=== PATIENT | female | born 1940 | race Caucasian/White ===

== ENCOUNTER 2017-12-21 14:38 | Inpatient (IN) ==
[2017-12-22] MEDS ORDERED: Bismuth Subsalicylate 120 ML ORAL SUSPENSION PO PRN (01:10)
[2017-12-22] MEDS ORDERED: traMADol 50 MG TABLET PO PRN (01:11)
[2017-12-22] MEDS: Melatonin 3 MG TABLET PO PRN ×3 (01:37→22:07)
[2017-12-22 05:58] LABS: Basophils % 0.5 %; Eosinophils # 0.2 K/mcL (0.0-0.6); Eosinophils % 2.2 %; Hematocrit 22.8 % (35.3-44.9); Hemoglobin 7.5 g/dL (11.5-15.4); INR 1.1; Immature Granulocytes % 5.8 % (0-4); Lymphocytes % 11.6 %; Mean Corpuscular HGB Conc 32.9 g/dL (31.6-35.5); Mean Corpuscular Hemoglobin 29.4 pg (28.0-33.3); Mean Corpuscular Volume 89.4 fL (83.0-100.0); Mean Platelet Volume 9.2 fL (9.4-12.4); Monocytes # 1.2 K/mcL (0.0-1.3); Monocytes % 14.5 %; Neutrophils # 5.3 K/mcL (1.6-8.9); Nucleated Red Blood Cells 0.9 /100 WBC (0); Platelet Count 279 K/mcL (140-400); Prothrombin Time 12.5 Seconds (9.4-12.1); Red Blood Count 2.55 M/mcL (3.82-4.97); Red Cell Distribution Width 15.7 % (11.5-14.5); Segmented Neutrophils % 65.4 %
[2017-12-22 06:01] LABS: Activated Partial Thrombo Time 34.8 Seconds (26.0-36.0)
[2017-12-22 06:10] LABS: Anisocytosis 1+ (Not Present); BUN/Creatinine Ratio 22 (6-26); Blood Urea Nitrogen 14 mg/dL (8-23); Calcium 8.3 mg/dL (8.6-10.3); Carbon Dioxide 26 mEq/L (23-29); Chloride 102 mEq/L (98-107); Glucose 131 mg/dL (70-105); Osmolality,Calculated 280 (280-300); Potassium 3.8 mEq/L (3.5-5.1); Sodium 134 mEq/L (136-145); eGFR For African Americans > 60 (> 60); eGFR For Non-African Americans > 60 (> 60)
[2017-12-22] MEDS: Sennosides/Docusate Sodium TABLET PO SCH ×2 (07:49→20:25)
[2017-12-22] MEDS: amLODIPine 5 MG TABLET PO SCH (07:49)
[2017-12-22] MEDS ORDERED: Aspirin 325 MG TABLET PO SCH (09:00)
--- NOTE | 2017-12-22 11:57 | Internal Med History&Physical ---
Date of Encounter: 12/22/17 Time of Encounter: 11:53 Assessment and Plan (1) Status post closed fracture of right femur Current visit: Yes Status: Acute PT\OT to eval and treat. Will follow progress. Pain controlled with Tylenol. Tramadol ordered if needed. Heparin for DVT prophylaxis (2) Essential hypertension Current visit: Yes Status: Acute Controlled with Norvasc. Monitor blood pressure. Internal Medicine - H&P: HPI Admitted From: Hospital to Hospital Transfer Plans for Post Hospital Care: Home History of present illness: Ms. Cherry is a 77 year old female admitted to inpatient rehab from [facility] s/p Right femur fracture with ORIF on 12/16/17 after tripping and falling over a box at work. Past medical history includes hypertension, Gerd, cervical neoplasm, diabetes. Prior to admission patient living at home with and working. States pain is controlled with Tylenol. States cannot take aspirin. States discussed changing aspirin to heparin. Last bowel movement yesterday. Maintaining appetite and hydration. Denies fever, chills, nausea, vomiting or diarrhea. Denies shortness of breath or chest pain. Scheduled to follow up with ortho on . NWB on RLE. Past Med Surg Social Fam HX - Past Medical History Medical history: GERD, hyperlipidemia, hypertension, other Additional medical history: Gallbladder Polyps - Past Surgical History Additional surgical history: Hiatal Surgery - Social History Smoking Status: Never smoker Smokeless Tobacco Status: No Alcohol use: none Drug use: none - Family History Sister Living Status: Hx Family Cancer: Yes Father Living Status: Hx Family Cardiac Disorders: Yes Internal Medicine - H&P: Meds 3 Allergy/AdvReac Type Severity Reaction Status Date / Time iodine AdvReac Rash Verified 12/21/17 23:32 All Systems PM: A 10-system review of systems was performed and is negative for pertinent findings except as documented above in the HPI. - Constitutional Constitutional: no chills, no fever(s), no night sweats - EENT Eyes: no change in vision, no discharge, no pain, no photophobia Ears: no ear discharge, no ear pain, no tinnitus Nose, mouth and throat: no dysphagia, no nasal discharge, no neck pain, no sore throat - Cardiovascular Cardiovascular ROS IM: no chest pain, no diaphoresis, no dyspnea, no lightheadedness, no palpitations, no syncope - Respiratory Respiratory: no cough, no dyspnea, no wheezing, no excessive phlegm production - Gastrointestinal Gastrointestinal: no abdominal pain, no diarrhea, no hematemesis, no hematochezia, no melena, no nausea, no vomiting - Genitourinary Genitourinary: no change in urinary stream, no dysuria, no flank pain, no hematuria - Musculoskeletal Musculoskeletal ROS IM: no numbness, no tingling - Integumentary Integumentary IM: no rash, no unusual bruising - Neurological Neurological ROS: no confusion, no convulsions, no focal weakness, no numbness, no tingling, no tremor(s) - Hematologic/Lymphatic Hematologic/Lymphatic: no easy bruising - Constitutional Vitals: Temp Pulse Resp BP Pulse Ox 98.9 F 92 16 128/77 90 12/22/17 07:18 12/22/17 07:18 12/22/17 07:18 12/22/17 07:18 12/22/17 07:18 General appearance: Present: cooperative, A&O X 3, no acute distress, answers questions appropriately - Head Head exam: Present: atraumatic, normocephalic - Eye Eye exam: Present: PERRL, conjuntiva pink, sclera anicteric Pupils: Present: PERRL - Neck Neck exam general surgery: Present: supple, trachea midline. Absent: lymphadenopathy - Respiratory Respiratory exam: Present: CTAB. Absent: accessory muscle use, rales, rhonchi, wheezes - Cardiovascular Cardiovascular exam: Present: RRR, +S1, +S2. Absent: diastolic murmur, gallop, rubs, systolic murmur - GI/Abdominal GI/Abdominal exam: Present: normal bowel sounds, soft, no peritoneal signs. Absent: distended, tenderness - Extremities Exam Extremities exam: Present: warm, radial pulses palpable and symmetrical. Absent : calf tenderness, cyanotic, pedal edema - Incison Comments: right femur, drsg intact. - Neurological Exam Neurological exam: Present: CN II-XII intact, oriented X3, no focal deficits. Absent: pronater drift, facial droop, speech deficit - Skin Skin exam: Present: dry, intact Internal Med - H&P Results - Labs CBC & Chem 7: 12/22/17 05:35 12/22/17 05:35 Labs: Short CBC 12/22/17 Range/Units 05:35 WBC 8.2 (4.3-11.1) K/mcL Hgb 7.5 L (11.5-15.4) g/dL Hct 22.8 L (35.3-44.9) % Plt Count 279 (140-400) K/mcL Neutrophils # 5.3 (1.6-8.9) K/mcL BMP 12/22/17 05:35 Sodium 134 L Potassium 3.8 Chloride 102 Carbon Dioxide 26 BUN 14 Creatinine 0.65 Glucose 131 H Calcium 8.3 L
[2017-12-22] MEDS: *HR* Heparin 5,000 UNIT/ML VIAL SQ SCH (17:43)
[2017-12-23] MEDS: *HR* Heparin 5,000 UNIT/ML VIAL SQ SCH ×2 (06:06→16:25)
[2017-12-23] MEDS: Sennosides/Docusate Sodium TABLET PO SCH ×2 (08:07→20:35)
[2017-12-23] MEDS: amLODIPine 5 MG TABLET PO SCH (08:07)
--- NOTE | 2017-12-23 11:54 | Internal Med Progress Note ---
Date of Encounter: 12/23/17 Time of Encounter: 11:52 - Assessment and plan (1) Status post closed fracture of right femur Current Visit: Yes Status: Acute Assessment and plan: Continue PT\OT. Will follow progress. Continue Tylenol for pain. Will monitor for effectiveness. Follow up with ortho as scheduled. (2) Essential hypertension Current Visit: Yes Status: Acute Assessment and plan: Controlled with current medication. Monitor blood pressure. (3) Anemia due to acute blood loss Current Visit: Yes Status: Acute Assessment and plan: Hemoglobin 7.5. Will repeat tomorrow. Asymptomatic - Time Spent With Patient less than 15 minutes - Subjective Interval history: Participating well with therapy. [place] self in hallway in wheelchair. Denies pain. Denies fever, chills, nausea, vomiting or diarrhea. Denies shortness of breath or chest pain. Maintaining appetite and hydration. - Constitutional Vitals: Temp Pulse Resp BP Pulse Ox 98.1 F 86 16 131/83 93 12/23/17 07:36 12/23/17 07:36 12/23/17 07:36 12/23/17 07:36 12/23/17 07:36 General appearance: Present: cooperative, A&O X 3, no acute distress, answers questions appropriately - Head Head exam: Present: atraumatic, normocephalic - Eye Eye exam: Present: PERRL, conjuntiva pink, sclera anicteric Pupils: Present: PERRL - Neck Neck exam general surgery: Present: supple, trachea midline. Absent: lymphadenopathy - Respiratory Respiratory exam: Present: CTAB. Absent: accessory muscle use, rales, rhonchi, wheezes - Cardiovascular Cardiovascular exam: Present: RRR, +S1, +S2. Absent: diastolic murmur, gallop, rubs, systolic murmur - GI/Abdominal GI/Abdominal exam: Present: normal bowel sounds, soft, no peritoneal signs. Absent: distended, tenderness - Extremities Exam Extremities exam: Present: warm, radial pulses palpable and symmetrical. Absent : calf tenderness, cyanotic, pedal edema - Incison Comments: right surgical incision drsg jennifer and intact. - Neurological Exam Neurological exam: Present: CN II-XII intact, oriented X3, no focal deficits. Absent: pronater drift, facial droop, speech deficit - Skin Skin exam: Present: dry, intact Internal Medicine: Result - Labs CBC & Chem 7: 12/22/17 05:35 12/22/17 05:35 - ABG Interpretation ABG results: PT/INR, D-dimer PT 12.5 Seconds (9.4-12.1) H 12/22/17 05:35 Consult Discharge Plan - Plan Referrals: Lopez Dutton [Primary Care Provider] -
[2017-12-23] MEDS: Melatonin 3 MG TABLET PO PRN (20:35)
[2017-12-24] MEDS: *HR* Heparin 5,000 UNIT/ML VIAL SQ SCH ×2 (05:39→18:18)
[2017-12-24] MEDS: Sennosides/Docusate Sodium TABLET PO SCH ×2 (08:03→21:37)
[2017-12-24] MEDS: amLODIPine 5 MG TABLET PO SCH (08:03)
--- NOTE | 2017-12-24 11:58 | Internal Med Progress Note ---
Date of Encounter: 12/24/17 Time of Encounter: 11:55 - Assessment and plan (1) Status post closed fracture of right femur Current Visit: Yes Status: Acute Assessment and plan: Patient is without complaints. States that pain to right leg has been minimal in that current pain medications have been effective. Right thigh and hip surgical incisions remain healthy and intact. Moderate amount of ecchymosis noted. Patient with moderate edema to right leg. No erythema. Patient is progressing well with physical therapy. We will continue with current plan of care (2) Essential hypertension Current Visit: Yes Status: Chronic Assessment and plan: No acute issues. Vital signs are stable. We will continue with current medications. (3) Anemia due to acute blood loss Current Visit: Yes Status: Acute Assessment and plan: Patient's most recent hemoglobin was 7.5. We will recheck hemoglobin in the morning. No signs of active bleeding. Vital signs are stable. - Subjective Interval history: He appears relaxed and currently denies any discomforts or shortness of breath. Patient states that physical therapy has been progressing well. - Constitutional Vitals: Temp Pulse Resp BP Pulse Ox 98.3 F 86 18 117/74 94 12/24/17 06:42 12/24/17 06:42 12/24/17 06:42 12/24/17 06:42 12/24/17 06:42 General appearance: Present: cooperative, A&O X 3, no acute distress, answers questions appropriately - Head Head exam: Present: atraumatic, normocephalic - Eye Eye exam: Present: PERRL, conjuntiva pink, sclera anicteric Pupils: Present: PERRL - Neck Neck exam general surgery: Present: supple, trachea midline. Absent: lymphadenopathy - Respiratory Respiratory exam: Present: CTAB. Absent: accessory muscle use, rales, rhonchi, wheezes - Cardiovascular Cardiovascular exam: Present: RRR, +S1, +S2. Absent: diastolic murmur, gallop, rubs, systolic murmur - GI/Abdominal GI/Abdominal exam: Present: normal bowel sounds, soft, no peritoneal signs. Absent: distended, tenderness - Extremities Exam Extremities exam: Present: warm, radial pulses palpable and symmetrical. Absent : calf tenderness, cyanotic, pedal edema Additional comments: Leg with split immobilizer in place. Moderate amount of ecchymosis noted to distal thigh. Surgical incision remained healthy and intact. No erythema - Neurological Exam Neurological exam: Present: CN II-XII intact, oriented X3, no focal deficits. Absent: pronater drift, facial droop, speech deficit - Skin Skin exam: Present: dry, intact Internal Medicine: Result - Labs CBC & Chem 7: 12/22/17 05:35 12/22/17 05:35 - ABG Interpretation ABG results: PT/INR, D-dimer PT 12.5 Seconds (9.4-12.1) H 12/22/17 05:35 Consult Discharge Plan - Plan Referrals: Lopez Dutton [Primary Care Provider] -
[2017-12-24 16:40] LABS: Bilirubin,Urine Small (Negative); Blood,Urine Negative (Negative); Clarity,Urine Clear (Clear); Color,Urine Yellow (Yellow); Glucose,Urine (UA) Normal (Normal); Ketones,Urine 15 mg/dL (Negative); Leukocyte Esterase,Urine Negative (Negative); Nitrite,Urine Negative (Negative); PH,Urine 5.5 pH Units (5.0-8.0); Protein,Urine Trace mg/dL (Neg-Trace); Specific Gravity,Urine 1.025 (1.010-1.025); Urobilinogen,Urine Normal (Normal)
[2017-12-24] MEDS: Melatonin 3 MG TABLET PO PRN (20:53)
[2017-12-25 05:47] LABS: Hematocrit 23.1 % (35.3-44.9); Hemoglobin 7.6 g/dL (11.5-15.4); Mean Corpuscular HGB Conc 32.9 g/dL (31.6-35.5); Mean Corpuscular Hemoglobin 30.6 pg (28.0-33.3); Mean Corpuscular Volume 93.1 fL (83.0-100.0); Mean Platelet Volume 9.2 fL (9.4-12.4); Platelet Count 346 K/mcL (140-400); Red Blood Count 2.48 M/mcL (3.82-4.97); Red Cell Distribution Width 18.7 % (11.5-14.5)
[2017-12-25 06:03] LABS: Alanine Aminotransferase 26 Units/L (7-52); Albumin 2.6 g/dL (3.5-5.7); Albumin/Globulin Ratio 1.2 (1.1-2.2); Alkaline Phosphatase 89 Units/L (34-104); Aspartate Amino Transferase 22 Units/L (13-39); BUN/Creatinine Ratio 32 (6-26); Bilirubin,Total 0.9 mg/dL (0.3-1.0); Blood Urea Nitrogen 23 mg/dL (8-23); Calcium 8.2 mg/dL (8.6-10.3); Carbon Dioxide 25 mEq/L (23-29); Chloride 103 mEq/L (98-107); Globulin 2.2 g/dL (2.4-3.5); Glucose 112 mg/dL (70-105); Magnesium 2.1 mg/dL (1.6-2.6); Osmolality,Calculated 284 (280-300); Potassium 3.5 mEq/L (3.5-5.1); Sodium 135 mEq/L (136-145); Total Protein 4.8 g/dL (6.4-8.9); eGFR For African Americans > 60 (> 60); eGFR For Non-African Americans > 60 (> 60)
[2017-12-25] MEDS: *HR* Heparin 5,000 UNIT/ML VIAL SQ SCH ×2 (06:13→18:29)
[2017-12-25] MEDS: Sennosides/Docusate Sodium TABLET PO SCH ×2 (08:05→20:09)
[2017-12-25] MEDS: amLODIPine 5 MG TABLET PO SCH (08:05)
[2017-12-25] MEDS: Acetaminophen 325 MG TABLET PO PRN ×2 (09:34→23:56)
--- NOTE | 2017-12-25 17:05 | Internal Med Progress Note ---
Date of Encounter: 12/25/17 Time of Encounter: 16:30 - Assessment and plan (1) Status post closed fracture of right femur Current Visit: Yes Status: Acute Assessment and plan: Pain controlled Continue PT/OT Nonbeta waiting for 8 weeks; has an orthopedic physician follow-up she will discuss long-term management with him/her (2) Essential hypertension Current Visit: Yes Status: Chronic Assessment and plan: Controlled (3) Anemia due to acute blood loss Current Visit: Yes Status: Acute Assessment and plan: Most likely anemia of acute blood loss Patient reports 1 unit RBC Patient also reports 1-2 units of iron infusion Hemoglobin has been stable; we will send Iron studies/B12 and thyroid - Time Spent With Patient 25 - 35 minutes - Constitutional Vitals: Temp Pulse Resp BP Pulse Ox 98.4 F 91 18 146/64 97 12/25/17 07:00 12/25/17 07:00 12/25/17 07:00 12/25/17 07:00 12/25/17 07:00 General appearance: Present: cooperative, A&O X 3, no acute distress, answers questions appropriately Internal Medicine: Result - Labs CBC & Chem 7: 12/25/17 05:10 12/25/17 05:10 Labs: Short CBC 12/25/17 Range/Units 05:10 WBC 11.3 H (4.3-11.1) K/mcL Hgb 7.6 L (11.5-15.4) g/dL Hct 23.1 L (35.3-44.9) % Plt Count 346 (140-400) K/mcL BMP 12/25/17 05:10 Sodium 135 L Potassium 3.5 Chloride 103 Carbon Dioxide 25 BUN 23 Creatinine 0.72 Glucose 112 H Calcium 8.2 L Liver Function 12/25/17 Range/Units 05:10 Total Bilirubin 0.9 (0.3-1.0) mg/dL AST 22 (13-39) Units/L ALT 26 (7-52) Units/L Alkaline Phosphatase 89 (34-104) Units/L Albumin 2.6 L (3.5-5.7) g/dL Urine 12/24/17 Range/Units 16:00 Urine Color Yellow (Yellow) Urine Clarity Clear (Clear) Urine pH 5.5 (5.0-8.0) pH Units Ur Specific [place] 1.025 (1.010-1.025) Urine Protein Trace (Neg-Trace) mg/dL Urine Glucose (UA) Normal (Normal) mg/dL - ABG Interpretation ABG results: PT/INR, D-dimer PT 12.5 Seconds (9.4-12.1) H 12/22/17 05:35 Consult Discharge Plan - Plan Referrals: Lopez Dutton [Primary Care Provider] -
[2017-12-25] MEDS: Melatonin 3 MG TABLET PO PRN (21:21)
[2017-12-26 05:16] LABS: Hematocrit 23.7 % (35.3-44.9); Hemoglobin 7.9 g/dL (11.5-15.4); Mean Corpuscular HGB Conc 33.3 g/dL (31.6-35.5); Mean Corpuscular Hemoglobin 31.2 pg (28.0-33.3); Mean Corpuscular Volume 93.7 fL (83.0-100.0); Mean Platelet Volume 9.3 fL (9.4-12.4); Platelet Count 371 K/mcL (140-400); Red Blood Count 2.53 M/mcL (3.82-4.97); Red Cell Distribution Width 19.4 % (11.5-14.5)
[2017-12-26 05:30] LABS: BUN/Creatinine Ratio 32 (6-26); Blood Urea Nitrogen 20 mg/dL (8-23); Calcium 8.3 mg/dL (8.6-10.3); Carbon Dioxide 25 mEq/L (23-29); Chloride 106 mEq/L (98-107); Glucose 115 mg/dL (70-105); Osmolality,Calculated 290 (280-300); Potassium 3.7 mEq/L (3.5-5.1); Sodium 138 mEq/L (136-145); eGFR For African Americans > 60 (> 60); eGFR For Non-African Americans > 60 (> 60)
[2017-12-26 05:42] LABS: Thyroid Stimulating Hormone 1.703 mcIU/mL (0.340-5.600)
[2017-12-26] MEDS: *HR* Heparin 5,000 UNIT/ML VIAL SQ SCH ×2 (06:48→17:54)
[2017-12-26] MEDS: Sennosides/Docusate Sodium TABLET PO SCH ×2 (08:02→21:29)
[2017-12-26] MEDS: amLODIPine 5 MG TABLET PO SCH (08:02)
--- NOTE | 2017-12-26 14:13 | Internal Med Progress Note ---
Date of Encounter: 12/26/17 Time of Encounter: 14:11 - Assessment and plan (1) Status post closed fracture of right femur Current Visit: Yes Status: Acute Assessment and plan: Pain controlled Continue PT/OT Nonweight bearing for 8 weeks; has an orthopedic physician follow-up she will discuss long-term management with him/her (2) Essential hypertension Current Visit: Yes Status: Chronic Assessment and plan: Controlled (3) Anemia due to acute blood loss Current Visit: Yes Status: Acute Assessment and plan: Most likely anemia of acute blood loss Patient reports 1 unit RBC transfusion while hospitalization Patient also reports 1-2 units of iron infusion while hospitalization Hemoglobin has been stable and somewhat improved -Thyroid normal -Pending B12 levels -Pending iron studies - Time Spent With Patient 25 - 35 minutes - Subjective Interval history: Patient is reporting insomnia due to her inability to sleep on her back; neg ROS - Constitutional Vitals: Temp Pulse Resp BP Pulse Ox 98.1 F 89 18 135/80 94 12/26/17 07:00 12/26/17 07:00 12/26/17 07:00 12/26/17 07:00 12/26/17 07:00 General appearance: Present: cooperative, A&O X 3, no acute distress, answers questions appropriately - Head Head exam: Present: atraumatic, normocephalic - Eye Eye exam: Present: PERRL, conjuntiva pink, sclera anicteric Pupils: Present: PERRL - Neck Neck exam general surgery: Present: supple, trachea midline. Absent: lymphadenopathy - Respiratory Respiratory exam: Present: CTAB. Absent: accessory muscle use, rales, rhonchi, wheezes - Cardiovascular Cardiovascular exam: Present: RRR, +S1, +S2. Absent: diastolic murmur, gallop, rubs, systolic murmur - GI/Abdominal GI/Abdominal exam: Present: normal bowel sounds, soft, no peritoneal signs. Absent: distended, tenderness - Extremities Exam Extremities exam: Present: pedal edema, warm, radial pulses palpable and symmetrical. Absent: calf tenderness, cyanotic Additional comments: Patient has a brace on the right lower extremity - Skin Skin exam: Present: dry, intact Internal Medicine: Result - Labs CBC & Chem 7: 12/26/17 04:21 12/26/17 04:21 Labs: Short CBC 07/29/18 Range/Units 04:21 WBC 9.7 (4.3-11.1) K/mcL Hgb 7.9 L (11.5-15.4) g/dL Hct 23.7 L (35.3-44.9) % Plt Count 371 (140-400) K/mcL [facility] 12/26/17 04:21 Sodium 138 Potassium 3.7 Chloride 106 Carbon Dioxide 25 BUN 20 Creatinine 0.62 Glucose 115 H Calcium 8.3 L - ABG Interpretation ABG results: PT/INR, D-dimer PT 12.5 Seconds (9.4-12.1) H 12/22/17 05:35 Consult Discharge Plan - Plan Referrals: Lopez Dutton [Primary Care Provider] -
[2017-12-26] MEDS: Melatonin 3 MG TABLET PO PRN (21:28)
[2017-12-27] MEDS: *HR* Heparin 5,000 UNIT/ML VIAL SQ SCH ×2 (05:21→18:27)
[2017-12-27 05:52] LABS: Basophils % 0.5 %; Eosinophils # 0.2 K/mcL (0.0-0.6); Eosinophils % 1.9 %; Hematocrit 24.3 % (35.3-44.9); Immature Granulocytes % 1.9 % (0-4); Lymphocytes # 1.2 K/mcL (0.6-4.6); Lymphocytes % 14.7 %; Mean Corpuscular HGB Conc 32.9 g/dL (31.6-35.5); Mean Corpuscular Hemoglobin 30.9 pg (28.0-33.3); Mean Corpuscular Volume 93.8 fL (83.0-100.0); Mean Platelet Volume 9.4 fL (9.4-12.4); Monocytes # 0.9 K/mcL (0.0-1.3); Monocytes % 11.1 %; Neutrophils # 5.9 K/mcL (1.6-8.9); Nucleated Red Blood Cells 0.2 /100 WBC (0); Platelet Count 373 K/mcL (140-400); Red Blood Count 2.59 M/mcL (3.82-4.97); Red Cell Distribution Width 20.1 % (11.5-14.5); Segmented Neutrophils % 69.9 %
[2017-12-27 06:08] LABS: BUN/Creatinine Ratio 33 (6-26); Blood Urea Nitrogen 22 mg/dL (8-23); Calcium 8.4 mg/dL (8.6-10.3); Carbon Dioxide 24 mEq/L (23-29); Chloride 106 mEq/L (98-107); Glucose 118 mg/dL (70-105); Osmolality,Calculated 286 (280-300); Potassium 3.8 mEq/L (3.5-5.1); Sodium 136 mEq/L (136-145); eGFR For African Americans > 60 (> 60); eGFR For Non-African Americans > 60 (> 60)
[2017-12-27] MEDS: Sennosides/Docusate Sodium TABLET PO SCH ×2 (08:29→20:57)
[2017-12-27] MEDS: amLODIPine 5 MG TABLET PO SCH (08:30)
--- NOTE | 2017-12-27 11:20 | Internal Med Progress Note ---
Date of Encounter: 12/27/17 Time of Encounter: 11:18 - Assessment and plan (1) Status post closed fracture of right femur Current Visit: Yes Status: Acute Assessment and plan: Continue PT\OT. Will follow progress. Continue Tylenol for pain. Will monitor for effectiveness. Follow up with ortho as scheduled tomorrow. (2) Essential hypertension Current Visit: Yes Status: Chronic Assessment and plan: Controlled with current medication. Monitor blood pressure. (3) Anemia due to acute blood loss Current Visit: Yes Status: Acute Assessment and plan: Hemoglobin 8.0 slightly improved. will monitor. - Time Spent With Patient less than 15 minutes - Subjective Interval history: Participating well with therapy. [place] self in hallway in wheelchair. Denies pain. Denies fever, chills, nausea, vomiting or diarrhea. Denies shortness of breath or chest pain. Maintaining appetite and hydration. states slept well last night. - Constitutional Vitals: Temp Pulse Resp BP Pulse Ox 98.4 F 95 20 126/90 90 12/27/17 07:41 12/27/17 07:41 12/27/17 07:41 12/27/17 07:41 12/27/17 07:41 General appearance: Present: cooperative, A&O X 3, no acute distress, answers questions appropriately - Head Head exam: Present: atraumatic, normocephalic - Eye Eye exam: Present: PERRL, conjuntiva pink, sclera anicteric Pupils: Present: PERRL - Neck Neck exam general surgery: Present: supple, trachea midline. Absent: lymphadenopathy - Respiratory Respiratory exam: Present: CTAB. Absent: accessory muscle use, rales, rhonchi, wheezes - Cardiovascular Cardiovascular exam: Present: RRR, +S1, +S2. Absent: diastolic murmur, gallop, rubs, systolic murmur - GI/Abdominal GI/Abdominal exam: Present: normal bowel sounds, soft, no peritoneal signs. Absent: distended, tenderness - Extremities Exam Extremities exam: Present: warm, radial pulses palpable and symmetrical. Absent : calf tenderness, cyanotic, pedal edema - Incison Comments: right femur surgical incision, drsg dry and intact. surrounding bruising and mod edema. - Neurological Exam Neurological exam: Present: CN II-XII intact, oriented X3, no focal deficits. Absent: pronater drift, facial droop, speech deficit - Skin Skin exam: Present: dry, intact Internal Medicine: Result - Labs CBC & Chem 7: 12/27/17 05:15 12/27/17 05:15 Labs: Short CBC 12/27/17 Range/Units 05:15 WBC 8.4 (4.3-11.1) K/mcL Hgb 8.0 L (11.5-15.4) g/dL Hct 24.3 L (35.3-44.9) % Plt Count 373 (140-400) K/mcL Neutrophils # 5.9 (1.6-8.9) K/mcL BMP 12/27/17 05:15 Sodium 136 Potassium 3.8 Chloride 106 Carbon Dioxide 24 BUN 22 Creatinine 0.67 Glucose 118 H Calcium 8.4 L - ABG Interpretation ABG results: PT/INR, D-dimer PT 12.5 Seconds (9.4-12.1) H 12/22/17 05:35 Consult Discharge Plan - Plan Referrals: Lopez Dutton [Primary Care Provider] -
[2017-12-27] MEDS: Melatonin 3 MG TABLET PO PRN (20:57)
[2017-12-28] MEDS: *HR* Heparin 5,000 UNIT/ML VIAL SQ SCH ×2 (06:35→18:10)
[2017-12-28] MEDS: amLODIPine 5 MG TABLET PO SCH (06:37)
[2017-12-28] MEDS: Sennosides/Docusate Sodium TABLET PO SCH ×2 (06:37→20:05)
--- NOTE | 2017-12-28 12:28 | Internal Med Progress Note ---
Date of Encounter: 12/28/17 Time of Encounter: 12:27 - Assessment and plan (1) Status post closed fracture of right femur Current Visit: Yes Status: Acute Assessment and plan: Patient is without complaints. States that pain to right leg has been minimal in that current pain medications have been effective. Right thigh and hip surgical incisions remain healthy and intact. Moderate amount of ecchymosis noted. Patient with slight edema to right leg. No erythema. Patient was seen by orthopedic surgeon today with no changes in plan of care noted. Patient is progressing well with physical therapy. We will continue with current plan of care (2) Essential hypertension Current Visit: Yes Status: Chronic Assessment and plan: No acute issues. Vital signs are stable. We will continue with current medications. (3) Anemia due to acute blood loss Current Visit: Yes Status: Acute Assessment and plan: Patient's most recent hemoglobin was 8.0. No signs of active bleeding. Vital signs are stable. - Time Spent With Patient less than 15 minutes - Subjective Interval history: He appears relaxed and currently denies any discomforts or shortness of breath. Patient states that physical therapy has been progressing well. - Constitutional Vitals: Temp Pulse Resp BP Pulse Ox 98.3 F 83 16 142/78 100 12/27/17 19:00 12/27/17 19:00 12/27/17 19:00 12/27/17 19:00 12/27/17 19:00 General appearance: Present: cooperative, A&O X 3, no acute distress, answers questions appropriately - Extremities Exam Additional comments: Right leg remains in immobilizer with nonweightbearing status. Right thigh surgical incisions remain dry and intact and appear healthy Internal Medicine: Result - Labs CBC & Chem 7: 12/27/17 05:15 12/27/17 05:15 - ABG Interpretation ABG results: PT/INR, D-dimer PT 12.5 Seconds (9.4-12.1) H 12/22/17 05:35 Consult Discharge Plan - Plan Referrals: Lopez Dutton [Primary Care Provider] -
[2017-12-28] MEDS: Acetaminophen 325 MG TABLET PO PRN (20:01)
[2017-12-29] MEDS: *HR* Heparin 5,000 UNIT/ML VIAL SQ SCH ×2 (04:25→17:37)
[2017-12-29] MEDS: Sennosides/Docusate Sodium TABLET PO SCH ×2 (09:41→20:47)
[2017-12-29] MEDS: amLODIPine 5 MG TABLET PO SCH (09:41)
--- NOTE | 2017-12-29 11:04 | Internal Med Progress Note ---
Date of Encounter: 12/29/17 Time of Encounter: 11:02 - Assessment and plan (1) Status post closed fracture of right femur Current Visit: Yes Status: Acute Assessment and plan: Continue PT\OT. Will follow progress. Went to ortho yesterday for follow-up. Allowed to be toe touch weight-bearing on right lower extremity. Follow up with ortho as scheduled. No complaints of pain. (2) Essential hypertension Current Visit: Yes Status: Chronic Assessment and plan: Controlled with current medication. Monitor blood pressure. (3) Anemia due to acute blood loss Current Visit: Yes Status: Acute Assessment and plan: Hemoglobin 8.0 slightly improved. will monitor. (4) Edema of lower extremity Current Visit: Yes Status: Acute Assessment and plan: Will add a diuretic. Will monitor for improvement. Dustin wrap bilateral lower extremities - Time Spent With Patient less than 15 minutes - Subjective Interval history: went to ortho for follow up yesterday and has been made toe touch weightbearing for 6 weeks. continue knee imobilizer when up. Participating well with therapy. [place] self in hallway in wheelchair. Denies pain. Denies fever, chills, nausea, vomiting or diarrhea. Denies shortness of breath or chest pain. Maintaining appetite and hydration. states slept well last night. increased edema to BLE, discussed a diuretic. - Constitutional Vitals: Temp Pulse Resp BP Pulse Ox 98.2 F 91 16 157/77 95 12/29/17 07:02 12/29/17 07:02 12/29/17 07:02 12/29/17 07:02 12/29/17 07:02 General appearance: Present: cooperative, A&O X 3, no acute distress, answers questions appropriately - Head Head exam: Present: atraumatic, normocephalic - Eye Eye exam: Present: PERRL, conjuntiva pink, sclera anicteric Pupils: Present: PERRL - Neck Neck exam general surgery: Present: supple, trachea midline. Absent: lymphadenopathy - Respiratory Respiratory exam: Present: CTAB. Absent: accessory muscle use, rales, rhonchi, wheezes - Cardiovascular Cardiovascular exam: Present: RRR, +S1, +S2. Absent: diastolic murmur, gallop, rubs, systolic murmur - GI/Abdominal GI/Abdominal exam: Present: normal bowel sounds, soft, no peritoneal signs. Absent: distended, tenderness - Extremities Exam Extremities exam: Present: pedal edema, warm, radial pulses palpable and symmetrical. Absent: calf tenderness, cyanotic Additional comments: BLE edema 2+ pitting. - Incison Comments: Right by incision open to air, no drainage. No redness or sign of infection. - Neurological Exam Neurological exam: Present: CN II-XII intact, oriented X3, no focal deficits. Absent: pronater drift, facial droop, speech deficit - Skin Skin exam: Present: dry, intact Internal Medicine: Result - Labs CBC & Chem 7: 12/27/17 05:15 12/27/17 05:15 - ABG Interpretation ABG results: PT/INR, D-dimer PT 12.5 Seconds (9.4-12.1) H 12/22/17 05:35 Consult Discharge Plan - Plan Referrals: Lopez Dutton [Primary Care Provider] -
[2017-12-29] MEDS ORDERED: Furosemide 40 MG TABLET PO STA (11:51)
[2017-12-29] MEDS: Acetaminophen 325 MG TABLET PO PRN (20:47)
[2017-12-29] MEDS: Melatonin 3 MG TABLET PO PRN (20:47)
[2017-12-30] MEDS: *HR* Heparin 5,000 UNIT/ML VIAL SQ SCH ×2 (05:10→17:21)
[2017-12-30] MEDS: Sennosides/Docusate Sodium TABLET PO SCH ×2 (07:57→20:44)
[2017-12-30] MEDS: amLODIPine 5 MG TABLET PO SCH (07:57)
--- NOTE | 2017-12-30 12:06 | Internal Med Progress Note ---
Date of Encounter: 12/30/17 Time of Encounter: 12:03 - Assessment and plan (1) Status post closed fracture of right femur Current Visit: Yes Status: Acute Assessment and plan: Continue PT\OT. Will follow progress. toe touch weight-bearing on right lower extremity. Follow up with ortho as scheduled. No complaints of pain. (2) Essential hypertension Current Visit: Yes Status: Chronic Assessment and plan: Controlled with current medication. Monitor blood pressure. (3) Anemia due to acute blood loss Current Visit: Yes Status: Acute Assessment and plan: Hemoglobin 8.0 slightly improved. will monitor. (4) Edema of lower extremity Current Visit: Yes Status: Acute Assessment and plan: improved after lasix dose yesterday. Dustin wrap bilateral lower extremities - Time Spent With Patient less than 15 minutes - Subjective Interval history: remains toe touch weight bearing on RLE. continue knee imobilizer when up. Participating well with therapy. Bruno self in hallway in wheelchair. Denies pain. Denies fever, chills, nausea, vomiting or diarrhea. Denies shortness of breath or chest pain. Maintaining appetite and hydration. states slept well last night. edema improved with lazix dose yesterday. labs pending. - Constitutional Vitals: Temp Pulse Resp BP Pulse Ox 97.8 F 83 14 118/74 94 12/30/17 07:00 12/30/17 07:00 12/29/17 19:32 12/30/17 07:00 12/30/17 07:00 General appearance: Present: cooperative, A&O X 3, no acute distress, answers questions appropriately - Head Head exam: Present: atraumatic, normocephalic - Eye Eye exam: Present: PERRL, conjuntiva pink, sclera anicteric Pupils: Present: PERRL - Neck Neck exam general surgery: Present: supple, trachea midline. Absent: lymphadenopathy - Respiratory Respiratory exam: Present: CTAB. Absent: accessory muscle use, rales, rhonchi, wheezes - Cardiovascular Cardiovascular exam: Present: RRR, +S1, +S2. Absent: diastolic murmur, gallop, rubs, systolic murmur - GI/Abdominal GI/Abdominal exam: Present: normal bowel sounds, soft, no peritoneal signs. Absent: distended, tenderness - Extremities Exam Extremities exam: Present: warm, radial pulses palpable and symmetrical. Absent : calf tenderness, cyanotic, pedal edema Additional comments: bilat LE edema slight -non-pitting. dustin wrapped. - Incison Comments: rigt femur incision, open to air, zach, well approximated with ecchymosis and edema surrounding. - Neurological Exam Neurological exam: Present: CN II-XII intact, oriented X3, no focal deficits. Absent: pronater drift, facial droop, speech deficit - Skin Skin exam: Present: dry, intact Internal Medicine: Result - Labs CBC & Chem 7: 12/27/17 05:15 12/27/17 05:15 - ABG Interpretation ABG results: PT/INR, D-dimer PT 12.5 Seconds (9.4-12.1) H 12/22/17 05:35 Consult Discharge Plan - Plan Referrals: Lopez Dutton [Primary Care Provider] -
[2017-12-30 13:18] LABS: BUN/Creatinine Ratio 29 (6-26); Blood Urea Nitrogen 25 mg/dL (8-23); Calcium 8.9 mg/dL (8.6-10.3); Carbon Dioxide 20 mEq/L (23-29); Chloride 101 mEq/L (98-107); Glucose 172 mg/dL (70-105); Osmolality,Calculated 286 (280-300); Potassium 4.1 mEq/L (3.5-5.1); Sodium 134 mEq/L (136-145); eGFR For African Americans > 60 (> 60); eGFR For Non-African Americans > 60 (> 60)
[2017-12-30 13:54] LABS: Basophils # 0.1 K/mcL (0.0-0.2); Basophils % 0.5 %; Eosinophils # 0.1 K/mcL (0.0-0.6); Eosinophils % 0.7 %; Hematocrit 29.6 % (35.3-44.9); Hemoglobin 9.6 g/dL (11.5-15.4); Immature Granulocytes % 0.5 % (0-4); Lymphocytes # 1.3 K/mcL (0.6-4.6); Mean Corpuscular HGB Conc 32.4 g/dL (31.6-35.5); Mean Corpuscular Hemoglobin 30.9 pg (28.0-33.3); Mean Corpuscular Volume 95.2 fL (83.0-100.0); Mean Platelet Volume 9.8 fL (9.4-12.4); Neutrophils # 8.5 K/mcL (1.6-8.9); Platelet Count 511 K/mcL (140-400); Red Blood Count 3.11 M/mcL (3.82-4.97); Segmented Neutrophils % 77.3 %
[2017-12-30] MEDS: Melatonin 3 MG TABLET PO PRN (20:40)
[2017-12-30] MEDS: Acetaminophen 325 MG TABLET PO PRN (21:39)
[2017-12-31] MEDS: *HR* Heparin 5,000 UNIT/ML VIAL SQ SCH (05:11)
[2017-12-31 07:16] VITALS: BP 143/84
[2017-12-31] MEDS: amLODIPine 5 MG TABLET PO SCH (08:25)
[2017-12-31] MEDS: Sennosides/Docusate Sodium TABLET PO SCH (08:25)
--- NOTE | 2017-12-31 11:30 | Discharge Summary ---
Date of Encounter: 12/31/17 Time of Encounter: 11:27 - Discharge Diagnosis (1) Status post closed fracture of right femur Priority: Primary Status: Acute Comments: Right thigh surgical incisions remain intact and appear healthy. Minimal amount of ecchymosis noticed surrounding surgical incisions. Right leg continues to have nonpitting edema. Patient continues to progress well with physical therapy. Patient will continue with home health therapy and is to follow up with her family physician and orthopedic surgeon. Patient has seen her orthopedic surgeon on follow-up approximately one week prior and was informed to continue nonweightbearing on right leg. Patient will be discharged with Lovenox injections daily for DVT prophylaxis (2) Essential hypertension Priority: Secondary Status: Chronic Comments: No acute issues. Vital signs of been stable. Patient to continue home medications at home (3) Anemia due to acute blood loss Priority: Secondary Status: Acute Comments: No acute issues. Hemoglobin is been stable. Would recommend patient to follow- up with family physician for further management Hospital course: Ms. Cherry is a 77 year old female admitted to inpatient rehab from [facility] s/p Right femur fracture with ORIF on 12/16/17 after tripping and falling over a box at work. Past medical history includes hypertension, Gerd, cervical neoplasm, diabetes. Prior to admission patient living at home with and working. States pain is controlled with Tylenol. States cannot take aspirin. States discussed changing aspirin to heparin. Last bowel movement yesterday. Maintaining appetite and hydration. Denies fever, chills, nausea, vomiting or diarrhea. Denies shortness of breath or chest pain. Scheduled follow up with ortho on . With orders to continue NWB on RLE. Patient progressed well with physical therapy during stay of facility. No acute issues were noted. Pain is been well managed with current medications. Right thigh surgical incision remains healthy and intact. Continued minimal amount of ecchymosis surrounding the incisions. Right leg continues to be somewhat swollen. Patient to continue with physical therapy by home health. Patient is to follow-up with orthopedic surgeon and family physician after discharge. Patient being discharged on daily Lovenox until her nonweightbearing status as finished Discharge discussed with: patient Time spent discussing smoking cessation with patient: 3 to 10 minutes - Time Spent with Patient Total time spent providing and/or coordinating discharge services: Less than 30 minutes - Discharge Medications Prescriptions: Enoxaparin [Lovenox] 40 mg SQ DAILY #14 syr Home Medications: Enoxaparin [Lovenox] 40 mg SQ DAILY #14 syr 12/31/17 [Rx] Allergies/Adverse Reactions: 3 Allergy/AdvReac Type Severity Reaction Status Date / Time iodine AdvReac Rash Verified 12/21/17 23:32 Date of admission: 12/21/17 23:15 Primary care physician: Lopez Dutton Consults: 12/22/17 01:06 Consult to Occupational Therapy [CONS] Routine Comment: Evaluate, develop and implement POC Reason for Consult: Eval and Treat Does patient have active BEDREST order?: No Is patient medically & hemodynamically stable?: Yes Patient assessed for mobility or mobilized this visit?: No Consult to Physical Medicine/Rehab [CONS] Routine Reason for Consult: Eval and Treat Call Completed: No Consult to Physical Therapy [CONS] Routine Comment: Evaluate, develop and implement POC Reason for Consult: Eval and Treat Does patient have active BEDREST order?: No Is patient medically & hemodynamically stable?: Yes Patient assessed for mobility or mobilized this visit?: No Consult to Recreational Therapy [CONS] Routine Comment: Evaluate, develop and implement POC Consult to Patient Account Specialist [CONS] Routine Reason for SW Consult: Discharge Planning Discharging clinician: Bhavesh Champion - Constitutional Vitals: Temp Pulse Resp BP Pulse Ox 98.2 F 97 16 143/84 97 12/31/17 07:15 12/31/17 07:15 12/31/17 07:15 12/31/17 07:15 12/31/17 07:15 General appearance: Present: cooperative, A&O X 3, no acute distress, answers questions appropriately - Head Head exam: Present: atraumatic, normocephalic - Eye Eye exam: Present: PERRL, conjuntiva pink, sclera anicteric Pupils: Present: PERRL - Neck Neck exam general surgery: Present: supple, trachea midline. Absent: lymphadenopathy - Respiratory Respiratory exam: Present: CTAB. Absent: accessory muscle use, rales, rhonchi, wheezes - Cardiovascular Cardiovascular exam: Present: RRR, +S1, +S2. Absent: diastolic murmur, gallop, rubs, systolic murmur - GI/Abdominal GI/Abdominal exam: Present: normal bowel sounds, soft, no peritoneal signs. Absent: distended, tenderness - Extremities Exam Extremities exam: Present: warm, radial pulses palpable and symmetrical. Absent : calf tenderness, cyanotic, pedal edema Additional comments: Right leg remains somewhat swollen. Right thigh surgical incisions remain intact and appear healthy. Minimal amount of ecchymosis noted surrounding incisions. - Neurological Exam Neurological exam: Present: CN II-XII intact, oriented X3, no focal deficits. Absent: pronater drift, facial droop, speech deficit - Skin Skin exam: Present: dry, intact - Patient Status Disposition: Home Health Service Condition: Good Functional capacity at discharge: wheelchair bound Overall status at discharge: patient is progressing back to baseline - Discharge Instructions Follow Up With: Lopez Dutton [Primary Care Provider] - - Diet and Activity Activity: as per physical therapy Diet: advance to your usual diet
--- NOTE | 2017-12-31 11:45 | Physician Discharge Referral ---
Home Health/Hosp Referral Info Transfer to: Home Health Provider in Charge Post Discharge: PCP - Diagnosis (1) Status post closed fracture of right femur Priority: Primary Status: Acute (2) Essential hypertension Priority: Secondary Status: Chronic (3) Anemia due to acute blood loss Priority: Secondary Status: Acute - Respiratory Orders Smoking Cessation: Smoking cessation has been advised. For more information, call the [employer] Tobacco Quit Line at 7-992-RDCF-NOW. - Dressing/Wound Care Site: right thigh Type of Dressing/Treatments w/Frequency: monitor healing please - Diet/Nutrition Diet/Nutrition Orders: Regular - Activity Activity Orders: Chair Activity: List: right leg is nonweightbearing. - Services Needed Following services are medically necessary services: Nursing, Home Health Aide, Physical Therapy, Occupational Therapy - Transfer Medications Prescriptions: Enoxaparin [Lovenox] 40 mg SQ DAILY #14 syr Home Medications: Enoxaparin [Lovenox] 40 mg SQ DAILY #14 syr 12/31/17 [Rx] Allergies/Adverse Reactions: 3 Allergy/AdvReac Type Severity Reaction Status Date / Time iodine AdvReac Rash Verified 12/21/17 23:32 Certification: Further, I certify that my clinical findings support that this patient is homebound (i.e. absences from home require considerable and taxing effort and are for medical reasons or druze services or infrequently or short duration when for other reasons) because: Homebound Reason: Leaving home requires considerable and taxing effort due to condition Attestation: My signature below is to certify that this patient is under my care and that I, or nurse practitioner, or a physician's data analysis assistant working with me, has a face-to -face encounter with this patient.
== END 2017-12-31 12:08 | disposition home health service (06) | DRG 560 ==
LOC: INPGRE 23:15